=== PATIENT | male | born 1960 | race Hispanic/Latino ===

== ENCOUNTER 2017-05-20 02:29 | Inpatient (IN) | payer OTHER ==
[2017-05-20 03:03] LABS: Basophils % (Auto) 1.2 % (0.0-1.8); Eosinophils % (Auto) 1.8 % (0.0-4.3); Hematocrit 45.4 % (35.5-45.6); Hemoglobin 15.7 gm/dl (11.8-15.2); Mean Corpuscular HGB Conc 35 % (32-34); Mean Corpuscular Hemoglobin 30 pg (28-32); Mean Corpuscular Volume 86 fl (84-94); Platelet Count 168 K/mm3 (140-440); Red Blood Count 5.31 M/mm3 (3.65-5.03); Red Cell Distribution Width 13.7 % (13.2-15.2); White Blood Count 11.1 K/mm3 (4.5-11.0)
[2017-05-20] MEDS ORDERED: APRESOLINE IV ONE (03:05)
[2017-05-20] MEDS ORDERED: NACL 0.9% 250ML 250 ML IV ONE (03:05)
[2017-05-20] MEDS ORDERED: MORPHINE IV ONE (03:05)
--- NOTE | 2017-05-20 03:06 | Emergency Department Report ---
ED Chest Pain HPI - General Chief Complaint: Chest Pain Stated Complaint: CHEST PAIN Time Seen by Provider: 05/20/17 02:53 Source: patient, EMS (ems notes not available at time of chart dictation), RN notes reviewed Mode of arrival: Stretcher Limitations: No Limitations - History of Present Illness Initial Comments: Primary care DrDesmond: Claudy Past medical history: Hypertension, neurofibromatosis This is a 56-year-old male. He is previously unknown to me. He is brought to the hospital by EMS complaining of chest pain. The chest pain is right-sided. It does not radiate to the back, arms and neck. It is associated with nausea, diaphoresis and shortness of breath. There is no leg pain. There is no leg swelling. No recent trips greater than 4 hours. No recent hospital admissions. No hematemesis. No bright red blood per rectum. No cocaine use. No recent stress test. Denies testicular pain. Denies abdominal pain. MD Complaint: chest pain -: Gradual, hour(s) Onset: during rest Pain Location: right chest Pain Radiation: none Severity: moderate Severity scale (0 -10): 7 Quality: aching Consistency: intermittent Improves With: nothing Worsens With: nothing re: nausea, diaphoresis, sense of impending doom Aspirin use within the Past 7 Days: (1) Yes - Related Data On Oral Contraceptives: No Home Medications Medication Instructions Recorded Confirmed Last Taken Lisinopril [Zestril TAB] 30 mg PO QDAY 05/20/17 05/20/17 05/20/17 Allergies Allergy/AdvReac Type Severity Reaction Status Date / Time No Known Allergies Allergy Verified 05/20/17 03:55 Heart Score - HEART Score History: Moderately suspicious EKG: Non-specific Age: 45-65 Risk factors: 1-2 risk factors Troponin: < normal limit HEART Score: 4 - Critical Actions Critical Actions: 0-3 pts:0.9-1.7%risk of adverse cardiac event.Candidate for discharge ED Review of Systems ROS: Stated complaint: CHEST PAIN Other details as noted in HPI Constitutional: diaphoresis. denies: fever Eyes: denies: vision change ENT: denies: epistaxis Respiratory: shortness of breath Cardiovascular: chest pain Gastrointestinal: nausea Genitourinary: denies: dysuria Musculoskeletal: denies: back pain Skin: denies: lesions Neurological: denies: weakness Psychiatric: denies: anxiety ED Past Medical Hx - Past Medical History Previous Medical History?: Yes Hx Hypertension: Yes - Social History Smoking Status: Never Smoker Substance Use Type: None - Medications Home Medications: Home Medications Medication Instructions Recorded Confirmed Last Taken Type Lisinopril [Zestril TAB] 30 mg PO QDAY 05/20/17 05/20/17 05/20/17 History ED Physical Exam - General Limitations: No Limitations General appearance: alert, in no apparent distress - Head Head exam: Present: atraumatic, normocephalic - Eye Eye exam: Present: normal appearance, EOMI. Absent: nystagmus - ENT ENT exam: Present: normal exam, normal orophraynx, mucous membranes moist, normal external ear exam - Neck Neck exam: Present: normal inspection, full ROM. Absent: tenderness, meningismus - Respiratory Respiratory exam: Present: normal lung sounds bilaterally. Absent: respiratory distress, wheezes, rales, rhonchi, stridor, chest wall tenderness, accessory muscle use, decreased breath sounds, prolonged expiratory - Cardiovascular Cardiovascular Exam: Present: regular rate, normal rhythm, normal heart sounds. Absent: bradycardia, tachycardia, irregular rhythm, systolic murmur, diastolic murmur, rubs, gallop - GI/Abdominal GI/Abdominal exam: Present: soft, tenderness, normal bowel sounds, pulsatile mass. Absent: distended, guarding, rebound, rigid - Rectal Rectal exam: Present: deferred - Extremities Exam Extremities exam: Present: normal inspection, normal capillary refill, other (2 + pulses are noted in the bilateral upper and lower extremities. The compartments are soft.). Absent: full ROM, tenderness, pedal edema, joint swelling, calf tenderness - Back Exam Back exam: Present: normal inspection, full ROM. Absent: tenderness, CVA tenderness (R), CVA tenderness (L), muscle spasm, paraspinal tenderness, vertebral tenderness - Neurological Exam Neurological exam: Present: alert, oriented X3, other (Extraocular movements intact. Tongue midline. No facial droop. Facial sensation intact to light touch in the V1, V2, V3 distribution bilaterally. 5 and 5 strength in 4 extremities.. Sensation is intact to light touch in 4 extremities.). Absent: motor sensory deficit - Psychiatric Psychiatric exam: Present: normal affect, normal mood - Skin Skin exam: Present: warm, dry, intact, normal color. Absent: rash ED Course Vital Signs 05/20/17 05/20/17 05/20/17 02:27 02:30 02:39 Temperature 98.2 F Pulse Rate 86 86 85 Respiratory 16 11 L 13 Rate Blood Pressure 187/131 196/114 Blood Pressure 196/115 [Left] O2 Sat by Pulse 96 97 98 Oximetry 05/20/17 05/20/17 05/20/17 02:41 02:44 02:51 Temperature Pulse Rate 84 87 Respiratory 13 13 Rate Blood Pressure 196/114 196/114 Blood Pressure 196/114 [Left] O2 Sat by Pulse 95 98 Oximetry 05/20/17 05/20/17 05/20/17 03:01 03:15 03:21 Temperature Pulse Rate 77 79 Respiratory 31 H 16 Rate Blood Pressure 196/114 181/117 Blood Pressure [Left] O2 Sat by Pulse 95 96 96 Oximetry 05/20/17 05/20/17 05/20/17 03:30 03:31 03:40 Temperature Pulse Rate 83 81 77 Respiratory 18 Rate Blood Pressure 173/103 181/117 Blood Pressure 171/101 [Left] O2 Sat by Pulse 96 Oximetry 05/20/17 05/20/17 05/20/17 03:41 04:16 04:21 Temperature Pulse Rate 81 84 Respiratory 20 19 Rate Blood Pressure 173/103 190/112 190/112 Blood Pressure [Left] O2 Sat by Pulse 97 97 96 Oximetry 05/20/17 05/20/17 05/20/17 04:30 04:41 04:51 Temperature Pulse Rate 85 82 79 Respiratory 12 22 18 Rate Blood Pressure 176/110 176/110 190/112 Blood Pressure [Left] O2 Sat by Pulse 97 96 96 Oximetry 05/20/17 05/20/17 05:00 05:27 Temperature Pulse Rate 81 78 Respiratory 21 13 Rate Blood Pressure 169/109 169/109 Blood Pressure [Left] O2 Sat by Pulse 96 98 Oximetry - Reevaluation(s) Reevaluation #1: 05/20/17 03:38 differential diagnosis: Acute coronary syndrome, hypertensive urgency/emergency, aortic dissection, AAA Assessment and plan: 56-year-old male with chest pain, hypertension. No pulmonary M Rosamaria DVT risk factors, low risk by well's criteria. X-ray of the chest is nonspecific, has equal pulses in 4 extremities, incidentally noted to have abdominal tenderness, may have a pulsatile abdominal mass. Patient will be treated with hydralazine for blood pressure control and morphine for pain. Emergent CT angiogram of the chest, abdomen, pelvis ordered. Reevaluation #2: 05/20/17 05:[address] scan of the chest is negative. CT scan abdomen and pelvis is pending. Troponin is negative. Reevaluation #3: 05/20/17 06:02 CT scan of the abdomen and pelvis is negative. Case is discussed with Dr. Lara, physician at [facility], and he authorizes admission to this hospital for blood pressure control and acs risk stratification. Case is presented to the Hospital physician, Dr. Agustin, who accepts patient to his service. RICK score - Rick Score Age > 65: (0) No Aspirin use within the Past 7 Days: (1) Yes 3 or more CAD Risk Factors: (0) No 2 or more Angina events in past 24 hrs: (0) No Known CAD with more than 50% Stenosis: (0) No Elevated Cardiac Markers: (0) No ST Deviation Greater than 0.5mm: (0) No RICK Score: 1 ED Medical Decision Making - Lab Data Result diagrams: 05/20/17 02:54 05/20/17 02:54 Vital Signs 05/20/17 05/20/17 05/20/17 02:27 02:30 02:39 Temperature 98.2 F Pulse Rate 86 86 85 Respiratory 16 11 L 13 Rate Blood Pressure 187/131 196/114 Blood Pressure 196/115 [Left] O2 Sat by Pulse 96 97 98 Oximetry 05/20/17 05/20/17 05/20/17 02:41 02:44 02:51 Temperature Pulse Rate 84 87 Respiratory 13 13 Rate Blood Pressure 196/114 196/114 Blood Pressure 196/114 [Left] O2 Sat by Pulse 95 98 Oximetry 05/20/17 05/20/17 05/20/17 03:01 03:15 03:21 Temperature Pulse Rate 77 79 Respiratory 31 H 16 Rate Blood Pressure 196/114 181/117 Blood Pressure [Left] O2 Sat by Pulse 95 96 96 Oximetry 05/20/17 03:31 Temperature Pulse Rate 81 Respiratory Rate Blood Pressure 181/117 Blood Pressure [Left] O2 Sat by Pulse Oximetry Lab Results 05/20/17 05/20/17 Range/Units 02:54 02:54 WBC 11.1 H (4.5-11.0) K/mm3 RBC 5.31 H (3.65-5.03) M/mm3 Hgb 15.7 H (11.8-15.2) gm/dl Hct 45.4 (35.5-45.6) % MCV 86 (84-94) fl MCH 30 (28-32) pg MCHC 35 H (32-34) % RDW 13.7 (13.2-15.2) % Plt Count 168 (140-440) K/mm3 Lymph % (Auto) 20.1 (13.4-35.0) % Ralls % (Auto) 9.4 H (0.0-7.3) % Eos % (Auto) 1.8 (0.0-4.3) % Baso % (Auto) 1.2 (0.0-1.8) % Lymph # 2.2 (1.2-5.4) K/mm3 Ralls # 1.0 H (0.0-0.8) K/mm3 Eos # 0.2 (0.0-0.4) K/mm3 Baso # 0.1 (0.0-0.1) K/mm3 Seg Neutrophils % 67.5 (40.0-70.0) % Seg Neutrophils # 7.5 (1.8-7.7) K/mm3 PT 14.0 (12.2-14.9) Sec. INR 1.03 (0.87-1.13) APTT 28.6 (24.2-36.6) Sec. - EKG Data -: EKG Interpreted by Me - EKG Data 05/20/17 03:39 Sinus, 84 bpm, normal axis, high left ventricular voltage, left ventricular hypertrophy, abnormal EKG, not morphologically consistent with STEMI - Radiology Data Radiology results: image reviewed interpreted by me: X-ray of the chest demonstrates cardiomegaly, possible mild widened mediastinum , nonspecific interstitial pulmonary pattern. Critical care attestation.: If time is entered above; I have spent that time in minutes in the direct care of this critically ill patient, excluding procedure time. ED Disposition Clinical Impression: Chest pain, Hypertensive urgency Disposition: OP ADMIT IP TO THIS HOSP Is pt being admited?: Yes Does the pt Need Aspirin: Yes Condition: Stable Instructions: Chest Pain (ED) Referrals: PRIMARY CARE,MD [Primary Care Provider] - 3-5 Days
[2017-05-20 03:13] LABS: INR 1.03 (0.87-1.13)
[2017-05-20 03:14] LABS: Partial Thromboplastin Time 28.6 Sec. (24.2-36.6)
[2017-05-20] MEDS ORDERED: NACL ONE (03:38)
[2017-05-20 03:54] LABS: Alanine Aminotransferase 15 units/L (7-56); Albumin 4.5 g/dL (3.9-5); Albumin/Globulin Ratio 1.5 %; Alkaline Phosphatase 47 units/L (35-129); Anion Gap 22 mmol/L; BUN/Creatinine Ratio 13.75; Blood Urea Nitrogen 11 mg/dL (9-20); Calcium 9.8 mg/dL (8.4-10.2); Carbon Dioxide 18 mmol/L (22-30); Chloride 105.1 mmol/L (98-107); Glucose 94 mg/dL (75-100); Potassium 4.3 mmol/L (3.6-5.0); Sodium 141 mmol/L (137-145); Total Protein 7.6 g/dL (6.3-8.2)
--- NOTE | 2017-05-20 03:54 | XRay Report ---
FINAL REPORT EXAM: XR CHEST 1V AP HISTORY: Chest pain. TECHNIQUE: A single frontal portable radiograph of the chest was obtained. No prior studies are available for comparison. FINDINGS: The cardiac silhouette and mediastinum are likely within normal limits, accounting for AP technique and slight lordotic position. The lungs are clear bilaterally, without focal infiltrate or effusion. There is no pneumothorax. There are degenerative changes at the right acromioclavicular joint. IMPRESSION: No active disease seen in the chest.
--- NOTE | 2017-05-20 05:23 | Cat Scan Report ---
FINAL REPORT PROCEDURE: CT ANGIO CHEST TECHNIQUE: Computerized axial tomographic angiography of the chest and pulmonary arteries was performed after the IV injection of iodinated nonionic contrast. The image data was postprocessed using maximum intensity projection (MIP) and 2-dimensional multiplanar reformatted (MPR) techniques. The examination is specifically tailored to the evaluation of the pulmonary arteries per clinical request. HISTORY: Short of breath 786.09, chest pain 786.50, aorta protocol cp abd pain COMPARISON: No prior studies are available for comparison. FINDINGS: Heart and pericardium: Normal. Thoracic aorta: Normal. Pulmonary vasculature: Normal. No pulmonary emboli. Lymph nodes: No enlarged thoracic lymph nodes. Lungs: Normal. Pleural space: No effusion, thickening, or pneumothorax. Musculoskeletal structures: No significant abnormality. Upper abdominal structures: No significant abnormality. IMPRESSION: There is no pulmonary embolism. There is no thoracic aortic aneurysm or dissection. The lungs are clear..
--- NOTE | 2017-05-20 05:58 | Cat Scan Report ---
FINAL REPORT PROCEDURE: CT ANGIO ABDOMEN PELVIS TECHNIQUE: Computerized axial tomographic angiography of the abdomen and pelvis was performed after the IV injection of iodinated nonionic contrast. The image data was postprocessed using 2-dimensional multiplanar reformatted (MPR) and 3-dimensional (MIP and/or volume rendered) techniques. HISTORY: aorta protocol cp abd pain COMPARISON: No prior studies are available for comparison. FINDINGS: Abdominal aorta: There is no aortic aneurysm or dissection. There is no thrombosis or stenosis. Celiac artery: Normal. Superior mesenteric artery: Normal. Left renal artery: Normal. Right renal artery: Normal. Inferior mesenteric artery: Normal Common iliacs: Normal. External iliacs: Normal. Internal iliacs: Normal. There is cholelithiasis. There is no cholecystitis or biliary ductal dilatation. There are surgical clips in Ponce's pouch. This could be evidence of prior adrenal gland surgery. The adrenal gland is not seen on the right. There are cysts in the left kidney measuring up to 2.5 centimeters. There are no stones. There is no hydronephrosis. There has been an appendectomy. There is no acute bowel abnormality. IMPRESSION: There is no aortic aneurysm or dissection. There is no thrombosis or stenosis. Mesenteric branches are patent and normal in caliber. There is cholelithiasis. There is no cholecystitis or biliary ductal dilatation. There has been a right adrenalectomy. There are cysts in the left kidney measuring up to 2.5 centimeters. There are no stones. There is no hydronephrosis. There has been an appendectomy. There is no acute bowel abnormality.
[2017-05-20] MEDS ORDERED: NITROSTAT SL ONE (06:03)
[2017-05-20] MEDS ORDERED: BABY ASPIRIN PO ONE (06:04)
[2017-05-20 06:30] LABS: Urine Drugs of Abuse Note Disclamer
[2017-05-20 06:39] LABS: Bilirubin,Urine NEG (Negative); Blood,Urine NEG (Negative); Ketones,Urine NEG (Negative); Leukocyte Esterase,Urine NEG (Negative); Mucus,Urine FEW /HPF; Nitrite,Urine NEG (Negative); Protein,Urine <15 mg/dL mg/dL (Negative); Urobilinogen,Urine < 2.0 mg/dL (<2.0)
--- NOTE | 2017-05-20 07:36 | Admit Criteria Form ---
Admission Criteria Documentation: CHEST PAIN Clinical Indications for Admission to Inpatient Care (Place 'X' for any and all applicable criteria): Admission is indicated for chest pain and ANY ONE of the following(1)(2)(3)(4)(5 ): [ ]I. Angina with acute coronary syndrome (Also use Myocardial Infarction or Angina guideline) [ ]II. Hemodynamic instability [ ]III. Angina needing acute intervention as indicated by ALL of the following( 11)(12): [ ]a) Unstable angina is present as indicated by angina that is ANY ONE of the following: [ ]i) New onset [ ]ii) Nocturnal [ ]iii) Prolonged at rest [ ]iv) Progressive [ ]b) Angina warrants acute intervention as indicated by ANY ONE of the following: [ ]i) Recurrent angina (e.g, not responding as previously to treatment) [ ]ii) Angina at rest or with low-level activities despite initial medical therapy [ ]iii) New or presumably new ST-segment depression on ECG [ ]iv) Signs or symptoms of heart failure (eg, dyspnea, pulmonary edema) [ ]v) New or worsening mitral regurgitation [ ]vi) Hemodynamic instability [ ]vii) Dangerous arrhythmia (eg, sustained ventricular tachycardia) [ ]viii) History of percutaneous coronary intervention within 6 months [ ]ix) History of coronary artery bypass graft surgery [ ]x) TSERING risk score of 2 or greater[A] [ ]xi) History of Diabetes(14) [ ]xii) High-risk cardiac ischemia findings on noninvasive testing (e.g, echocardiogram, treadmill testing, nuclear scan) [ ]xiii) Chronic renal insufficiency (ie, estimated GFR less than 60 mL/min/1.732m) [ ]xiv) Left ventricular ejection fraction less than 40% [ ]IV. Evidence of [place] (eg, cardiac biomarkers positive, ST-segment elevation on ECG) also use Myocardial Infarction Criteria Form. [ ]V. Pulmonary edema [ ]. Respiratory distress [ ]VII. Chest pain indicative of serious diagnosis other than coronary artery disease (eg, aortic dissection) [ ]VIII. Contraindications and/or Inappropriate clinical situations for Observational Care in patients with Chest Pain, when ANY ONE of the following is required: [ ]a) Patient with risk factor for pulmonary embolism, acute coronary syndrome and myocardial infarction (18) [ ]b) Patient with Pulmonary embolism require an average LOS of 4.3 days, therefore emergency department observation management is inappropriate 18,23 [ ]c) Painful condition/s in the elderly, have the highest rate of recidivism after emergency department observation management (10.8%) 20,21,22 [ ]d) Elevated cardiac biomarker requires intensive and exhaustive care (19) [X ]IX. General contraindications and/or Inappropriate clinical situations for Observational Care in patients with Chest Pain, when ANY ONE of the following is required: [X ]a) Prediction of prolongation of LOS based on ANY ONE of the following may be considered as a contraindication for observational care 2, 3, 4, 5, 6, 7, 8, 9, 10, 11 [ ]i) Age > 65 yrs. [X ]ii) Patient arriving by ambulance [ ]iii) Patient with high acuity [ ]iv) Patient requiring vital sign monitoring [ ]v) Patient on IV medication [X ]b) Systolic blood pressures 180mmHg 3,12 [ ]c) Patient with altered mental status including delirium and other alteration of consciousness, (3) [ ]d) Patient whose discharge disposition will be to a group home home or rehabilitation home should not be managed in Emergency Department Observation Unit. CMS rule requires 3 days hospital stay before such placement. 3,13 [ ]e) Patient with failure to thrive due to broad array of etiologies 3,16,17 [ ]f) Inability to ambulate 3,14 Extended stay beyond goal length of stay may be needed for (1)(28): [ ]a) Specific condition diagnosed after evaluation (eg, pulmonary embolism, aortic dissection) [ ]b) Unstable angina [ ]c) Continued suspicion of acute coronary syndrome with inability to complete needed cardiac evaluation (eg, patient clinically unable to undergo stress testing) [ ]d) Myocardial infarction (Contents from ANGINA and CHEST PAIN clinical indications for admission to inpatient care have been integrated in this form) The original [employer] content created by [employer] has been revised. The portions of the content which have been revised are identified through the use of italic text or in bold, and [employer] [facility] [employer] has neither reviewed nor approved the modified material. All other unmodified content is copyright [employer]. Please see references footnoted in the original [employer] [facility] edition 2016 Admission Criteria Met: Yes
--- NOTE | 2017-05-20 08:46 | History and Physical Report ---
History of Present Illness Date of examination: 05/20/17 Date of admission: 05/20/17 06:14 Chief complaint: Chest pain History of present illness: Patient is a 56 years old male with past medical history of hypertension, who presented to the ED complaining of right chest pain. He states that the pain began yesterday and consisted of sharp pain. The pain was located over his right chest area somewhat near his shoulder; non radiating. The onset of pain came while the patient was at work. He did not sit and rest during the pain, but continued to do his job. 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 The pain is a dull, preceded by a short interval of a sharp pain. The sharp pain lasted around 1 minute. The patient did experience some tingling and numbness in his right arm after the pain ceased.He continued to have several episodes of the pain throughout the day yesterday, so his decided to come to the Emergency department. The painful episodes did not increase in intensity or severity during this time. There is no alleviating or aggravating factors. At the ED the patient was given nitroglycerin, ASA with no improvement. The patient currently rated his pain a score of 8/10. He experienced shortness of breath, nausea, lightheadedness and diaphoresis during these episodes of pain. He denies vomiting. Patient does admit pleurisy but denies any recent flights or injury. Patient has the same symptoms last week on 05/14/2017 and went to [facility] Emergency department. Patient was discharge with blood pressure medication and was told his chest pain was secondary to hypertension. Past History Past Medical History: hypertension Past Surgical History: appendectomy, Other (kidney mass removal) Social history: lives with family. denies: smoking, alcohol abuse Family history: CAD, hypertension Medications and Allergies Allergies Allergy/AdvReac Type Severity Reaction Status Date / Time No Known Allergies Allergy Verified 05/20/17 03:55 Home Medications Medication Instructions Recorded Confirmed Last Taken Type Lisinopril [Zestril TAB] 30 mg PO QDAY 05/20/17 05/20/17 05/20/17 History Active Meds: Active Medications Acetaminophen (Tylenol) 650 mg PO Q4H PRN PRN Reason: Pain MILD(1-3)/Fever >100.5/VERGARA Aspirin (Baby Aspirin) 81 mg PO QDAY CHAN Bisacodyl (Dulcolax) 10 mg [place] QDAY PRN PRN Reason: Constipation unrelieved by MOM Hydralazine HCl (Apresoline) 10 mg IV Q4H PRN PRN Reason: SBP >160 Dextrose/Sodium Chloride (D5ns) 1,000 mls @ 75 mls/hr IV DIRECT CHAN Miscellaneous Medication (Lisinopril [Zestril Tab]) 30 mg PO QDAY CHAN Morphine Sulfate (Morphine) 2 mg IV Q4H PRN PRN Reason: Pain, Moderate (4-6) Nitroglycerin (Nitrostat) 0.4 mg SL .Q5MIN PRN PRN Reason: Chest Pain Review of Systems Constitutional: no weight loss, no weight gain, no fever, no chills Ears, nose, mouth and throat: no ear discharge, no tinnitis, no decreased hearing, no nose pain, no nasal congestion Cardiovascular: chest pain, lightheadedness, shortness of breath, no palpitations, no rapid/irregular heart beat, no dyspnea on exertion, no paroxysmal nocturnal dyspnea, no claudication Respiratory: no cough, no cough with sputum, no excessive sputum Gastrointestinal: nausea, no vomiting, no diarrhea, no constipation Genitourinary Male: no hematuria, no flank pain, no discharge, no urinary frequency Rectal: no pain, no incontinence Musculoskeletal: no neck stiffness, no neck pain, no shooting arm pain, no arm numbness/tingling Integumentary: no rash, no pruritis, no redness, no sores Neurological: no transient paralysis, no paralysis, no weakness, no parathesias , no numbness Psychiatric: no memory loss, no change in sleep habits, no sleep disturbances, no insomnia, no hypersomnia Endocrine: no cold intolerance, no heat intolerance, no polyphagia, no excessive thirst, no polydipsia, no polyuria Hematologic/Lymphatic: no easy bruising, no easy bleeding Allergic/Immunologic: no urticaria, no allergic rhinitis Exam - Constitutional Vitals: Temp Pulse Resp BP Pulse Ox 97.5 F L 78 16 159/98 97 05/20/17 07:27 05/20/17 07:27 05/20/17 07:27 05/20/17 07:27 05/20/17 07:27 General appearance: Present: no acute distress - EENT Eyes: Present: PERRL ENT: hearing intact - Neck Neck: Present: supple - Respiratory Respiratory: bilateral: CTA - Cardiovascular Heart rate: 78 Rhythm: regular Heart Sounds: Present: S1 & S2 - Extremities Extremities: no ischemia Peripheral Pulses: within normal limits - Abdominal General gastrointestinal: Present: soft, non-tender Male genitourinary: Present: deferred - Rectal Rectal Exam: deferred - Integumentary Integumentary: Present: clear, warm, dry - Musculoskeletal Musculoskeletal: strength equal bilaterally - Psychiatric Psychiatric: appropriate mood/affect - Neurologic Neurologic: CNII-XII intact - Allied Health Allied health notes reviewed: nursing Results - Labs CBC & Chem 7: 05/21/17 06:47 05/21/17 06:47 Labs: Laboratory Last Values WBC 11.1 K/mm3 (4.5-11.0) H 05/20/17 02:54 RBC 5.31 M/mm3 (3.65-5.03) H 05/20/17 02:54 Hgb 15.7 gm/dl (11.8-15.2) H 05/20/17 02:54 Hct 45.4 % (35.5-45.6) 05/20/17 02:54 MCV 86 fl (84-94) 05/20/17 02:54 MCH 30 pg (28-32) 05/20/17 02:54 MCHC 35 % (32-34) H 05/20/17 02:54 RDW 13.7 % (13.2-15.2) 05/20/17 02:54 Plt Count 168 K/mm3 (140-440) 05/20/17 02:54 Lymph % (Auto) 20.1 % (13.4-35.0) 05/20/17 02:54 [place] % (Auto) 9.4 % (0.0-7.3) H 05/20/17 02:54 Eos % (Auto) 1.8 % (0.0-4.3) 05/20/17 02:54 Baso % (Auto) 1.2 % (0.0-1.8) 05/20/17 02:54 Lymph # 2.2 K/mm3 (1.2-5.4) 05/20/17 02:54 [place] # 1.0 K/mm3 (0.0-0.8) H 05/20/17 02:54 Eos # 0.2 K/mm3 (0.0-0.4) 05/20/17 02:54 Baso # 0.1 K/mm3 (0.0-0.1) 05/20/17 02:54 Seg Neutrophils % 67.5 % (40.0-70.0) 05/20/17 02:54 Seg Neutrophils # 7.5 K/mm3 (1.8-7.7) 05/20/17 02:54 PT 14.0 Sec. (12.2-14.9) 05/20/17 02:54 INR 1.03 (0.87-1.13) 05/20/17 02:54 APTT 28.6 Sec. (24.2-36.6) 05/20/17 02:54 Sodium 141 mmol/L (137-145) 05/20/17 02:54 Potassium 4.3 mmol/L (3.6-5.0) 05/20/17 02:54 Chloride 105.1 mmol/L (98-107) 05/20/17 02:54 Carbon Dioxide 18 mmol/L (22-30) L 05/20/17 02:54 Anion Gap 22 mmol/L 05/20/17 02:54 BUN 11 mg/dL (9-20) 05/20/17 02:54 Creatinine 0.8 mg/dL (0.8-1.5) 05/20/17 02:54 Estimated GFR > 60 ml/min 05/20/17 02:54 BUN/Creatinine Ratio 13.75 % 05/20/17 02:54 Glucose 94 mg/dL (75-100) 05/20/17 02:54 Calcium 9.8 mg/dL (8.4-10.2) 05/20/17 02:54 Total Bilirubin 0.70 mg/dL (0.1-1.2) 05/20/17 02:54 AST 15 units/L (5-40) 05/20/17 02:54 ALT 15 units/L (7-56) 05/20/17 02:54 Alkaline Phosphatase 47 units/L (35-129) 05/20/17 02:54 NT-Pro-B Natriuret Pep 108.7 pg/mL (0-900) 05/20/17 02:54 Total Protein 7.6 g/dL (6.3-8.2) 05/20/17 02:54 Albumin 4.5 g/dL (3.9-5) 05/20/17 02:54 Albumin/Globulin Ratio 1.5 % 05/20/17 02:54 Urine Color Yellow (Yellow) 05/20/17 05:35 Urine Turbidity Clear (Clear) 05/20/17 05:35 Urine pH 7.0 (5.0-7.0) 05/20/17 05:35 Ur Specific [place] 1.036 (1.003-1.030) H 05/20/17 05:35 Urine Protein <15 mg/dl mg/dL (Negative) 05/20/17 05:35 Urine Glucose (UA) Neg mg/dL (Negative) 05/20/17 05:35 Urine Ketones Neg mg/dL (Negative) 05/20/17 05:35 Urine Blood Neg (Negative) 05/20/17 05:35 Urine Nitrite Neg (Negative) 05/20/17 05:35 Urine Bilirubin Neg (Negative) 05/20/17 05:35 Urine Urobilinogen < 2.0 mg/dL (<2.0) 05/20/17 05:35 Ur Leukocyte Esterase Neg (Negative) 05/20/17 05:35 Urine WBC (Auto) 1.0 /HPF (0.0-6.0) 05/20/17 05:35 Urine RBC (Auto) 2.0 /HPF (0.0-6.0) 05/20/17 05:35 U Epithel Cells (Auto) < 1.0 /HPF (0-13.0) 05/20/17 05:35 Urine Mucus Few /HPF 05/20/17 05:35 Urine Opiates Screen Presumptive negative 05/20/17 05:35 Urine Methadone Screen Presumptive negative 05/20/17 05:35 Ur Barbiturates Screen Presumptive negative 05/20/17 05:35 Ur Phencyclidine Scrn Presumptive negative 05/20/17 05:35 Ur Amphetamines Screen Presumptive negative 05/20/17 05:35 U Benzodiazepines Scrn Presumptive negative 05/20/17 05:35 Urine Cocaine Screen Presumptive negative 05/20/17 05:35 U Marijuana (THC) Screen Presumptive negative 05/20/17 05:35 Drugs of Abuse Note Disclamer 05/20/17 05:35 - Imaging and Cardiology Chest x-ray: image reviewed (No active disease seen) Abdominal x-ray: image reviewed (There is no cholelithiasis or cholecystitis or biliary ductal dilatation.) CT scan - chest: image reviewed (There is no pulmonary embolism. there is no thoracic aortic aneurysm or dissection.) Assessment and Plan Assessment and plan: Patient is a 56 years old male with past medical history of hypertension, who presented to the ED complaining of right chest pain. He states that the pain began yesterday and consisted of sharp pain. The pain was located over his right chest area somewhat near his shoulder; non radiating. Patient does admit pleurisy but denies any recent flights or trauma. Patient has the same symptoms last week 05/14/2017 and went to [facility] Emergency department. Patient was discharge with blood pressure medication and was told his chest pain was secondary to hypertension. Chest x-ray-no focal infiltrates , no pneumothorax. Cardiac enzyme negative X1 and EKG Abnormal EKG Sinus, 84 bpm, normal axis, high left ventricular voltage, left ventricular hypertrophy, abnormal EKG, not morphologically consistent with STEMI ASSESSMENT/PLAN Chest pain We will admit to telemetry Abnormal EKG Sinus, 84 bpm, normal axis, high left ventricular voltage, left ventricular hypertrophy, abnormal EKG, not morphologically consistent with STEMI we also get another EKG ordered for any changes have taken since the first obtained. Negative cardiac enzymes X1 . Fluid hydration Stress test, abnormal MPI and recommended left cardiac cath tomorrow morning. Start on aspirin Nitroglycerin when necessary Controlled with morphine Hypertension Resume home antihypertensive medications IV Hydralazine for SBP>160 Closely monitor blood pressure DVT prophylaxis Lovenox Advance Directives: Yes (Full Code) VTE prophylaxis?: Chemical Contraindication Mechanical VTE Prophylaxis: Treatment Not Indicated Plan of care discussed with patient/family: Yes
[2017-05-20] MEDS ORDERED: DULCOLAX PR PRN (09:00)
[2017-05-20] MEDS ORDERED: NITROSTAT SL PRN (09:00)
[2017-05-20] MEDS ORDERED: TYLENOL PO PRN (09:00)
[2017-05-20] MEDS ORDERED: NON-FORMULARY (Lisinopril [Zestril Tab] 30 MG) PO SCH (10:00)
[2017-05-20] MEDS: BABY ASPIRIN PO SCH (10:37)
[2017-05-20] MEDS ORDERED: LEXISCAN IV ONE ×2 (12:07→12:09)
--- NOTE | 2017-05-20 14:01 | Consultation ---
History of Present Illness Consult date: 05/20/17 Consult reason: chest pain, other (Abnormal MPI) History of present illness: This is a 56yr old male who reports a history of Hypertension,was brought in with complaints of chest pain. He associated chest pain with shortness of breath , nausea and diaphoresis. He denies syncope. There is no prior cardiac history or workup. He was admitted for rule out ACS with a persantinine thallium stress test ordered by the primary team. Past History Past Medical History: hypertension Past Surgical History: appendectomy Social history: lives with family. denies: smoking, alcohol abuse Family history: CAD, hypertension Medications and Allergies Allergies Allergy/AdvReac Type Severity Reaction Status Date / Time No Known Allergies Allergy Verified 05/20/17 03:55 Home Medications Medication Instructions Recorded Confirmed Last Taken Type Lisinopril [Zestril TAB] 30 mg PO QDAY 05/20/17 05/20/17 05/20/17 History Active Meds: Active Medications Acetaminophen (Tylenol) 650 mg PO Q4H PRN PRN Reason: Pain MILD(1-3)/Fever >100.5/VERGARA Aspirin (Baby Aspirin) 81 mg PO QDAY [facility] Last Admin: 05/20/17 10:37 Dose: 81 mg Bisacodyl (Dulcolax) 10 mg [place] QDAY PRN PRN Reason: Constipation unrelieved by MOM Enoxaparin Sodium (Lovenox) 40 mg SUB-Q QDAY@2200 [facility] Hydralazine HCl (Apresoline) 10 mg IV Q4H PRN PRN Reason: SBP >160 Dextrose/Sodium Chloride (D5ns) 1,000 mls @ 75 mls/hr IV DIRECT CHAN Lisinopril (Zestril) 30 mg PO QDAY [facility] Morphine Sulfate (Morphine) 2 mg IV Q4H PRN PRN Reason: Pain, Moderate (4-6) Nitroglycerin (Nitrostat) 0.4 mg SL .Q5MIN PRN PRN Reason: Chest Pain Physical Examination Vital Signs Pulse Resp Pulse Ox 86 16 96 05/20/17 02:27 05/20/17 02:27 05/20/17 02:27 General appearance: no acute distress HEENT: Positive: PERRL Neck: Positive: trachea midline Cardiac: Positive: Reg Rate and Rhythm Lungs: Positive: Decreased Breath Sounds Neuro: Positive: Grossly Intact Results 05/20/17 02:54 05/20/17 02:54 Assessment and Plan Chest pain Abnormal MPI Hypertension -uncontrolled BP Recommendations: Optimal BP management. Further cardiac evaluation with a left cardiac cath tomorrow morning.
[2017-05-20] MEDS: TOPROL XL PO SCH (19:59)
[2017-05-20] MEDS: D5NS 1,000 ML IV SCH (20:01)
--- NOTE | 2017-05-20 21:03 | Treadmill Report ---
ORDERING PHYSICIAN: Dr. Harpreet Matos. INDICATION: Chest pain. FINDINGS: This is an abnormal myocardial perfusion scan. There is evidence of a small mildly reversible inferior wall defect suggesting possible ischemia in the right coronary artery distribution. The ventricular size is normal. There is normal wall motion and wall thickening with a preserved ejection fraction. CONCLUSION: 1. Abnormal perfusion scan revealing a small mildly reversible inferior wall defect suggesting possible ischemia in the right coronary distribution. 2. Normal left ventricular size and systolic function. JOB# [id number] [facility]/BUCK
[2017-05-20] MEDS: LOVENOX SUB-Q SCH (21:09)
[2017-05-20] MEDS: MORPHINE IV PRN (21:09)
[2017-05-20] MEDS: APRESOLINE IV PRN (21:10)
[2017-05-21 07:01] LABS: Eosinophils % (Auto) 2.5 % (0.0-4.3); Hematocrit 43.4 % (35.5-45.6); Hemoglobin 14.9 gm/dl (11.8-15.2); Mean Corpuscular HGB Conc 34 % (32-34); Mean Corpuscular Hemoglobin 30 pg (28-32); Mean Corpuscular Volume 86 fl (84-94); Platelet Count 168 K/mm3 (140-440); Red Blood Count 5.06 M/mm3 (3.65-5.03); Red Cell Distribution Width 14.1 % (13.2-15.2); White Blood Count 9.4 K/mm3 (4.5-11.0)
[2017-05-21 07:10] LABS: INR 1.06 (0.87-1.13)
[2017-05-21 07:19] LABS: Anion Gap 17 mmol/L; BUN/Creatinine Ratio 15.55; Blood Urea Nitrogen 14 mg/dL (9-20); Carbon Dioxide 22 mmol/L (22-30); Glucose 100 mg/dL (75-100); Potassium 4.5 mmol/L (3.6-5.0); Sodium 137 mmol/L (137-145)
--- NOTE | 2017-05-21 08:15 | Progress Note ---
Assessment and Plan Assessment and plan: Patient is a 56 years old male with past medical history of hypertension, who presented to the ED complaining of right chest pain. He states that the pain began yesterday and consisted of sharp pain. The pain was located over his right chest area somewhat near his shoulder; non radiating. Patient does admit pleurisy but denies any recent flights or trauma. Patient has the same symptoms last week 05/14/2017 and went to [facility] Emergency department. Patient was discharge with blood pressure medication and was told his chest pain was secondary to hypertension. Chest x-ray-no focal infiltrates, no pneumothorax. Cardiac enzyme negative X1 and EKG Abnormal EKG Sinus, 84 bpm, normal axis, high left ventricular voltage, left ventricular hypertrophy, abnormal EKG, not morphologically consistent with STEMI ASSESSMENT/PLAN Chest pain We will admit to telemetry Abnormal EKG Sinus, 84 bpm, normal axis, high left ventricular voltage, left ventricular hypertrophy, abnormal EKG, not morphologically consistent with STEMI we also get another EKG ordered for any changes have taken since the first obtained. Negative cardiac enzymes X1 . Fluid hydration Stress test, abnormal MPI and Patient is awaiting for left cardiac cath today. Continue on aspirin Nitroglycerin when necessary Controlled with morphine Hypertension Continue on home antihypertensive medications IV Hydralazine for SBP>160 Closely monitor blood pressure DVT prophylaxis Lovenox History Interval history: Patient complains right chest pain but verbalized that it much better than yesterday, he gave his pain 4/10. He denies SOB, sweating nausea and vomiting. Hospitalist Physical - Constitutional Vitals: Temp Pulse Resp BP Pulse Ox 98.0 F 90 18 152/88 96 05/21/17 04:00 05/21/17 04:00 05/21/17 04:00 05/21/17 04:00 05/21/17 04:00 General appearance: Present: no acute distress - EENT Eyes: Present: PERRL ENT: hearing intact - Neck Neck: Present: supple - Respiratory Respiratory effort: normal Respiratory: bilateral: CTA - Cardiovascular Heart rate: 77 Rhythm: regular Heart Sounds: Present: S1 & S2 - Extremities Extremities: no ischemia Peripheral Pulses: within normal limits - Abdominal General gastrointestinal: soft, non-tender - Integumentary Integumentary: Present: clear, warm, dry - Psychiatric Psychiatric: appropriate mood/affect - Neurologic Neurologic: CNII-XII intact, moves all extremities - Allied Health Allied health notes reviewed: nursing Results - Labs CBC & Chem 7: 05/21/17 06:47 05/21/17 06:47 Labs: Laboratory Last Values WBC 9.4 K/mm3 (4.5-11.0) 05/21/17 06:47 RBC 5.06 M/mm3 (3.65-5.03) H 05/21/17 06:47 Hgb 14.9 gm/dl (11.8-15.2) 05/21/17 06:47 Hct 43.4 % (35.5-45.6) 05/21/17 06:47 MCV 86 fl (84-94) 05/21/17 06:47 MCH 30 pg (28-32) 05/21/17 06:47 MCHC 34 % (32-34) 05/21/17 06:47 RDW 14.1 % (13.2-15.2) 05/21/17 06:47 Plt Count 168 K/mm3 (140-440) 05/21/17 06:47 Lymph % (Auto) 16.7 % (13.4-35.0) 05/21/17 06:47 [place] % (Auto) 12.4 % (0.0-7.3) H 05/21/17 06:47 Eos % (Auto) 2.5 % (0.0-4.3) 05/21/17 06:47 Baso % (Auto) 1.0 % (0.0-1.8) 05/21/17 06:47 Lymph # 1.6 K/mm3 (1.2-5.4) 05/21/17 06:47 [place] # 1.2 K/mm3 (0.0-0.8) H 05/21/17 06:47 Eos # 0.2 K/mm3 (0.0-0.4) 05/21/17 06:47 Baso # 0.1 K/mm3 (0.0-0.1) 05/21/17 06:47 Seg Neutrophils % 67.4 % (40.0-70.0) 05/21/17 06:47 Seg Neutrophils # 6.3 K/mm3 (1.8-7.7) 05/21/17 06:47 PT 14.3 Sec. (12.2-14.9) 05/21/17 06:47 INR 1.06 (0.87-1.13) 05/21/17 06:47 APTT 28.6 Sec. (24.2-36.6) 05/20/17 02:54 Sodium 137 mmol/L (137-145) 05/21/17 06:47 Potassium 4.5 mmol/L (3.6-5.0) 05/21/17 06:47 Chloride 103.0 mmol/L (98-107) 05/21/17 06:47 Carbon Dioxide 22 mmol/L (22-30) 05/21/17 06:47 Anion Gap 17 mmol/L 05/21/17 06:47 BUN 14 mg/dL (9-20) 05/21/17 06:47 Creatinine 0.9 mg/dL (0.8-1.5) 05/21/17 06:47 Estimated GFR > 60 ml/min 05/21/17 06:47 BUN/Creatinine Ratio 15.55 % 05/21/17 06:47 Glucose 100 mg/dL (75-100) 05/21/17 06:47 POC Glucose 84 (70-105) 05/20/17 22:04 Calcium 9.0 mg/dL (8.4-10.2) 05/21/17 06:47 Total Bilirubin 0.70 mg/dL (0.1-1.2) 05/20/17 02:54 AST 15 units/L (5-40) 05/20/17 02:54 ALT 15 units/L (7-56) 05/20/17 02:54 Alkaline Phosphatase 47 units/L (35-129) 05/20/17 02:54 Troponin T < 0.010 ng/mL (0.00-0.029) 05/20/17 10:11 NT-Pro-B Natriuret Pep 108.7 pg/mL (0-900) 05/20/17 02:54 Total Protein 7.6 g/dL (6.3-8.2) 05/20/17 02:54 Albumin 4.5 g/dL (3.9-5) 05/20/17 02:54 Albumin/Globulin Ratio 1.5 % 05/20/17 02:54 Urine Color Yellow (Yellow) 05/20/17 05:35 Urine Turbidity Clear (Clear) 05/20/17 05:35 Urine pH 7.0 (5.0-7.0) 05/20/17 05:35 Ur Specific [place] 1.036 (1.003-1.030) H 05/20/17 05:35 Urine Protein <15 mg/dl mg/dL (Negative) 05/20/17 05:35 Urine Glucose (UA) Neg mg/dL (Negative) 05/20/17 05:35 Urine Ketones Neg mg/dL (Negative) 05/20/17 05:35 Urine Blood Neg (Negative) 05/20/17 05:35 Urine Nitrite Neg (Negative) 05/20/17 05:35 Urine Bilirubin Neg (Negative) 05/20/17 05:35 Urine Urobilinogen < 2.0 mg/dL (<2.0) 05/20/17 05:35 Ur Leukocyte Esterase Neg (Negative) 05/20/17 05:35 Urine WBC (Auto) 1.0 /HPF (0.0-6.0) 05/20/17 05:35 Urine RBC (Auto) 2.0 /HPF (0.0-6.0) 05/20/17 05:35 U Epithel Cells (Auto) < 1.0 /HPF (0-13.0) 05/20/17 05:35 Urine Mucus Few /HPF 05/20/17 05:35 Urine Opiates Screen Presumptive negative 05/20/17 05:35 Urine Methadone Screen Presumptive negative 05/20/17 05:35 Ur Barbiturates Screen Presumptive negative 05/20/17 05:35 Ur Phencyclidine Scrn Presumptive negative 05/20/17 05:35 Ur Amphetamines Screen Presumptive negative 05/20/17 05:35 U Benzodiazepines Scrn Presumptive negative 05/20/17 05:35 Urine Cocaine Screen Presumptive negative 05/20/17 05:35 U Marijuana (THC) Screen Presumptive negative 05/20/17 05:35 Drugs of Abuse Note Disclamer 05/20/17 05:35
[2017-05-21] MEDS ORDERED: ZESTRIL PO SCH (10:30)
[2017-05-21] MEDS: D5NS 1,000 ML IV SCH ×2 (10:51→22:43)
[2017-05-21] MEDS: HALFPRIN EC PO SCH (10:51)
[2017-05-21] MEDS: BABY ASPIRIN PO SCH (10:52)
[2017-05-21] MEDS: TOPROL XL PO SCH (10:52)
[2017-05-21] MEDS ORDERED: HEPARIN/NS 5000 UNIT/500ML(CATH LAB) 1,000 ML IR ONE (14:31)
[2017-05-21] MEDS ORDERED: XYLOCAINE 2% INFILTRATI ONE (14:32)
[2017-05-21] MEDS ORDERED: CALAN ONE (14:33)
[2017-05-21] MEDS ORDERED: HEPARIN 10,000 UNITS/10 ML ONE (14:33)
[2017-05-21] MEDS ORDERED: NITROGLYCERIN SYRINGE 3 ML ONE (14:34)
[2017-05-21] MEDS: SUBLIMAZE ONE ×2 (14:40→14:50)
[2017-05-21] MEDS: VERSED ONE ×2 (14:40→14:50)
--- NOTE | 2017-05-21 16:30 | Event Note ---
Date: 05/21/17 Patient underwent cardiac catheterization via the right radial approach. There were no complications. We found essentially, angiography normal coronary arteries, normal left ventricle systolic function, ejection fraction 60%. Recommendations: Conservative cardiac management. The patient is stable for discharge today from a cardiac standpoint 2 hours post cardiac catheterization. If indicated, you may pursue noncardiac etiologies of chest pain.
[2017-05-21] MEDS ORDERED: NACL 0.9% 1000 ML 1,000 ML IV SCH (17:00)
--- NOTE | 2017-05-21 17:35 | Cardiac Catherization Report ---
CARDIAC CATHETERIZATION REPORT REASON FOR PROCEDURE: Chest pain and abnormal thallium stress test. PROCEDURE: The patient was prepped and draped in a sterile fashion after informed consent. The right radial cath site was prepped and draped after a negative Carlos's test. The right radial artery was entered using the Seldinger technique followed by placement of a 6-Citizen Of [place] hydrophilic sheath. Routine radial cocktail was administered via the sheath. A #3.5 left Jane catheter was used for left coronary angiography. A #4 right Jane was used for right coronary angiography. A pigtail catheter was used for left ventricle angiography. The catheters were removed, sheath removed, and hemostasis achieved using manual compression. The patient was returned to the postprocedure unit in stable condition. FINDINGS: HEMODYNAMICS: Left ventricle end diastolic pressure was 18, following coronary angiography. Ascending aortic pressure was 151/91. There was no significant pressure gradient on pullback across the aortic valve. CORONARY ANGIOGRAPHY: There was moderate, diffuse ectasia of the left coronary vessels. The left main coronary artery was otherwise angiographically normal. The left anterior descending artery contained minimal irregularities in its mid segment, otherwise angiographically normal. A medium size ramus intermedius artery contained minimal irregularities. The circumflex artery and its obtuse marginal branches contained mild irregularities in its distal segments. The right coronary artery was dominant, and angiographically normal. There was normal left ventricular systolic function, ejection fraction 60%. CONCLUSIONS: 1. Moderate ectasia of the coronary vessels. 2. No significant coronary disease, essentially, angiographically normal coronary arteries. 3. Normal left ventricular systolic function, ejection fraction 60%. RECOMMENDATION: Risk factor modification and medical therapy. JOB# [id number] CA/NTS
[2017-05-21] MEDS: DIOVAN PO SCH (22:34)
[2017-05-21] MEDS: LOVENOX SUB-Q SCH (22:35)
[2017-05-22] MEDS: APRESOLINE IV PRN (00:13)
[2017-05-22] MEDS: MORPHINE IV PRN (00:22)
--- NOTE | 2017-05-22 08:54 | Discharge Summary ---
Providers - Providers Date of Admission: 05/20/17 06:14 Attending physician: NEYDA CONTRERAS MD 05/21/17 16:28 Consult to Cardiac Rehabilitation [CONS] Routine Reason For Exam: Cardiac Rehab Evaluation Primary care physician: PRODUCT MANAGER E COMMERCE Hospitalization Condition: Stable Pertinent studies: Cardiac showed clean coronaries, no significant obstruction Hospital course: Patient is a 56 years old male with past medical history of hypertension, who presented to the ED complaining of right chest pain. He states that the pain began yesterday and consisted of sharp pain. The pain was located over his right chest area somewhat near his shoulder; non radiating. Patient does admit pleurisy but denies any recent flights or trauma. Patient has the same symptoms last week 05/14/2017 and went to [facility] Emergency department. Patient was discharge with blood pressure medication and was told his chest pain was secondary to hypertension. Chest x-ray-no focal infiltrates, no pneumothorax. Cardiac enzyme negative X1 and EKG Abnormal EKG Sinus, 84 bpm, normal axis, high left ventricular voltage, left ventricular hypertrophy, abnormal EKG, not morphologically consistent with STEMI ASSESSMENT/PLAN Chest pain due to hypertensive urgency Hypertensive urgency We will admit to telemetry Abnormal EKG Sinus, 84 bpm, normal axis, high left ventricular voltage, left ventricular hypertrophy, abnormal EKG, not morphologically consistent with STEMI we also get another EKG ordered for any changes have taken since the first obtained. Negative cardiac enzymes X1 . Fluid hydration Stress test, abnormal MPI and Patient is awaiting for left cardiac cath today. Continue on aspirin Nitroglycerin when necessary Controlled with morphine Hypertension Continue on home antihypertensive medications IV Hydralazine for SBP>160 Closely monitor blood pressure Disposition: DC-01 TO HOME OR SELFCARE Time spent for discharge: 32 minutes Core Measure Documentation - Palliative Care Palliative Care/ Comfort Measures: Not Applicable - Core Measures Any of the following diagnoses?: none Exam - Constitutional Vitals: Temp Pulse Resp BP Pulse Ox 97.9 F 88 20 162/90 96 05/22/17 04:32 05/22/17 04:32 05/22/17 04:32 05/22/17 04:32 05/22/17 04:32 General appearance: Present: no acute distress, well-nourished - EENT Eyes: Present: PERRL ENT: hearing intact, clear oral mucosa - Neck Neck: Present: supple, normal ROM - Respiratory Respiratory effort: normal Respiratory: bilateral: CTA - Cardiovascular Heart Sounds: Present: S1 & S2. Absent: rub, click - Extremities Extremities: pulses symmetrical, No edema Peripheral Pulses: within normal limits - Abdominal General gastrointestinal: Present: soft, non-tender, non-distended, normal bowel sounds Male genitourinary: Present: normal - Integumentary Integumentary: Present: clear, warm, dry - Musculoskeletal Musculoskeletal: gait normal, strength equal bilaterally - Psychiatric Psychiatric: appropriate mood/affect, intact judgment & insight - Neurologic Neurologic: CNII-XII intact, moves all extremities Plan Follow up with: PRIMARY CARE, [Primary Care Provider] - 3-5 Days Prescriptions: Aspirin EC [Aspirin Enteric Coated TAB] 81 mg PO QDAY #30 tablet Carvedilol [Coreg] 3.125 mg PO BID #60 tablet Valsartan/Hydrochlorothiazide [Diovan Hct 160-12.5 mg] 1 tab PO BID #60 tablet
[2017-05-22] MEDS: HALFPRIN EC PO SCH (11:05)
[2017-05-22] MEDS: DIOVAN PO SCH (11:05)
[2017-05-22] MEDS: BABY ASPIRIN PO SCH (11:05)
[2017-05-22] MEDS: TOPROL XL PO SCH (11:05)
[2017-05-22 11:52] VITALS: BP 180/109
--- NOTE | 2017-05-22 12:25 | Progress Note ---
Assessment and Plan Chest pain LHC: angiography normal coronary arteries, normal left ventricle systolic function, ejection fraction 60%. Hypertension Recommendations: Optimal BP management. Conservative cardiac management. Stable, cardiac [place]oria. Subjective Date of service: 05/22/17 Interval history: Patient denies chest pain. Dressing applied to right radial cath site. Objective Vital Signs Temp Pulse Pulse Resp BP Pulse Ox 05/22/17 11:51 98.4 F 80 20 180/109 96 05/22/17 09:38 98 H 05/22/17 08:00 98.5 F 86 20 161/107 100 05/22/17 04:32 97.9 F 88 20 162/90 96 05/22/17 00:42 98.0 F 75 20 180/102 100 05/22/17 00:13 73 173/93 05/21/17 22:34 72 173/97 05/21/17 22:00 93 H 20 05/21/17 20:20 97.6 F 76 18 164/94 97 05/21/17 18:09 98.8 F 90 20 149/91 98 05/21/17 18:00 81 05/21/17 17:15 98.3 F 68 22 162/93 98 05/21/17 16:45 98.5 F 88 22 160/85 97 05/21/17 16:15 98.7 F 68 18 163/97 97 05/21/17 16:00 98.5 F 75 20 148/82 98 05/21/17 15:46 98.7 F 73 20 154/89 99 05/21/17 15:45 98.9 F 73 20 154/89 99 - Physical Examination General: No Apparent Distress HEENT: Positive: PERRL Neck: Positive: trachea midline Cardiac: Positive: Reg Rate and Rhythm Lungs: Positive: Decreased Breath Sounds Neuro: Positive: Grossly Intact Incision: Cardiac Cath Site (right radial)
[2017-05-22] MEDS ORDERED: DIOVAN PO ONE ×2 (14:09→15:00)
== END 2017-05-22 15:42 | disposition home or self-care (01) | DRG 287 ==
LOC: ED 02:29 → 4A 06:14
PROVIDERS: ADMIT Internal Medicine; ATTEND Internal Medicine
PROC: 4A023N7 Measurement of Cardiac Sampling and Pressure, Left Heart, Percutaneous Approach (ICD-10-PCS; principal; 2017-05-21)
PROC: B2111ZZ Fluoroscopy of Multiple Coronary Arteries using Low Osmolar Contrast (ICD-10-PCS; 2017-05-21)
PROC: B2151ZZ Fluoroscopy of Left Heart using Low Osmolar Contrast (ICD-10-PCS; 2017-05-21)
DX: I16.0 Hypertensive urgency (principal); R07.9 Chest pain, unspecified; I10 Essential (primary) hypertension; I11.9 Hypertensive heart disease without heart failure; Z82.49 Family history of ischemic heart disease and other diseases of the circulatory system; Z79.899 Other long term (current) drug therapy; Z90.49 Acquired absence of other specified parts of digestive tract
CPT/HCPCS: 36415; 71010; 71275; 74174; 78452; 80048; 80053; 80307; 81001; 82962; 83880; 84484; 85025; 85610; 85730; 93005; 93010; 93017; 93458; 96374; 96375; A9270-GY; A9502; C1894; J0360; J1644; J1650; J2250; J2270; J2785; J3010; J7042; J7050; Q9967